=== PATIENT | female | born 1990 | race Caucasian/White ===

== ENCOUNTER 2016-11-15 21:10 | Inpatient (IN) | payer OTHER ==
--- NOTE | ~2016-11-15 | PN ---
Unit #: [id number] #: [id number] Patient: RICARDO MEANS [id number] [facility] [address] [place] [address] [id number] I MR#: [id number] NAME: RICARDO MEANS. ROOM: [facility] Age: 26 Sex: F Admission Date: 11/16/2016 : 1990 Attending Physician: Melody Williamson M.D. Admitting Physician: Melody Williamson M.D. Primary Care Physician: Primary Care Physician Katerina SCHAFFER NOTES DATE OF SERVICE: 11/19/2016 SUBJECTIVE Ms. Means is a 26-year-old white female who was seen today and chart was reviewed and case was discussed with the staff. She has been anxious, withdrawn, depressed, and reports not feeling good and was sitting on the bed, stating that she still has been having some negative thoughts. Meanwhile, she has been taking medications and tolerating them fairly well with no reported side effects. MENTAL STATUS EXAMINATION Young white female, who was casually dressed with fair personal hygiene, appears to be in no acute distress or discomfort. She was awake and alert on interaction with intact orientation. Her mood was anxious and depressed with a congruent affect. Her speech was slow and goal directed. She reports having suicidal ideation, but denies any homicidal ideations. Her insight and judgment remain slightly impaired. TREATMENT PLAN 1. We will continue her on her current treatment protocol. We will monitor her response to the medications and make further adjustments as needed. 2. We will continue to follow up. Dictated by... Teofilo Franco/ryan TD: 11/20/2016 01:37 JOB #: [id number] Unit #: [id number] #: [id number] Patient: RICARDO MEANS SILVE[facility]RE PROGRESS NOTES Page 1 of 1 X Melody Williamson MD PROGRESS NOTE
--- NOTE | ~2016-11-15 | PN ---
Unit #: [id number] #: [id number] Patient: RICARDO MEANS [id number] [facility] [address] [place] [address] [id number] I MR#: [id number] NAME: RICARDO MEANS. ROOM: [facility] Age: 26 Sex: F Admission Date: 11/16/2016 : 1990 Attending Physician: Melody Williamson M.D. Admitting Physician: Melody Williamson M.D. Primary Care Physician: Primary Care Physician Katerina RIVERS PROGRESS NOTES DATE November 21, 2016 DISCUSSION Ms. Means is a 26-year-old white female. who was seen today and chart was reviewed and the case was discussed with the staff. She has been anxious, withdrawn, and seclusive to herself, and was not feeling good last night, and reports auditory hallucinations as well as increasing anxiety, and also informed me she was having suicidal and homicidal ideations, and that last night she was having thoughts of hurting people outside of her room and mostly staff, even though they did not do anything to her and she stated that they were being nice to her but she was so agitated and frustrated that she was having thoughts of hurting them. The patient also reports increasing anxiety to an extent that it has been making her heart jump out of her chest and her chest muscles tighten up. The patient has been on Vistaril but does not appear to be showing a good response to the medication. MENTAL STATUS EXAMINATION Young white female, who was casually dressed with fair personal hygiene and appears to be in no acute distress or discomfort. She was awake and alert on interaction with intact orientation. Her mood was anxious with a congruent affect. She denies any suicidal or homicidal ideations. Her insight and judgment remain significantly impaired. TREATMENT PLAN 1. We will continue her on her current medications and switch her Vistaril to propranolol and will also increase her Seroquel to 300 mg at bedtime. 2. We will continue to followup. Dictated by... Teofilo Franco/betito TD: 11/22/2016 09:41 JOB #: [id number] Unit #: [id number] #: [id number] Patient: RICARDO MEANS PROGRESS NOTES Page 1 of 1 X Melody Williamson MD PROGRESS NOTE
--- NOTE | ~2016-11-15 | PN ---
Unit #: [id number] #: [id number] Patient: RICARDO MEANS [id number] [facility] [address] [place] [address] [id number] I MR#: [id number] NAME: RICARDO MEANS. ROOM: [facility] Age: 26 Sex: F Admission Date: 11/16/2016 : 1990 Attending Physician: Melody Williamson M.D. Admitting Physician: Melody Williamson M.D. Primary Care Physician: Primary Care Physician Katerina SCHAFFER NOTES DATE OF SERVICE: 11/18/2016 SUBJECTIVE Ms. Means is a 26-year-old white female who was seen today and chart was reviewed and case was discussed with the staff. She remains anxious, withdrawn, depressed, and rather seclusive to herself. Meanwhile, she has been cooperative with treatment recommendations and has been taking the medications and tolerating them fairly well with no reported side effects. MENTAL STATUS EXAMINATION Young white female who was casually dressed with fair personal hygiene, appears to be in no acute distress or discomfort. She was awake and alert on interaction with intact orientation. Her mood was anxious and depressed with a congruent affect. Her speech was slow and restricted in content. She reports having suicidal ideations, but denies any homicidal ideations. Her insight and judgment remain significantly impaired. TREATMENT PLAN 1. We will continue her on her current medications and treatment protocol. We will monitor her response to the medications and make further adjustments as needed. 2. We will continue to follow up. Dictated by... Teofilo Franco/ryan TD: 11/20/2016 01:24 JOB #: [id number] [facility] PROGRESS NOTES Page 1 of 1 X Melody Williamson MD PROGRESS NOTE
--- NOTE | ~2016-11-15 | PN ---
Unit #: [id number] #: [id number] Patient: RICARDO MEANS [id number] [facility] [address] [place] [address] [id number] I MR#: [id number] NAME: RICARDO MEANS. ROOM: [facility] Age: 26 Sex: F Admission Date: 11/16/2016 : 1990 Attending Physician: Melody Williamson M.D. Admitting Physician: Melody Williamson M.D. Primary Care Physician: Primary Care Physician Katerina SCHAFFER NOTES DATE OF SERVICE 11/24/2016 SUBJECTIVE Ms. Means is a 26-year-old white female who was seen today and chart was reviewed and case was discussed with the staff. The patient has been doing fairly well, but still has been complaining of persistent anxiety, however, she reports sleeping better last night. MENTAL STATUS EXAMINATION Young white female, who was casually dressed with fair personal hygiene, appears to be in no acute distress or discomfort. She was awake and alert on interaction with intact orientation. Her mood was anxious and depressed with a congruent affect. ideations. Her insight and judgment remain slightly impaired. TREATMENT PLAN 1. We will continue her on her current treatment protocol. We will monitor her response to the medications and make further adjustments as needed. 2. We will continue to follow up. Dictated by... Melody Williamson M.D. PIETER/ryan TD: 11/24/2016 12:10 JOB #: [id number] [facility] PROGRESS NOTES Page 1 of 1 X Melody Williamson MD PROGRESS NOTE
--- NOTE | ~2016-11-15 | PN ---
Unit #: [id number] #: [id number] Patient: RICARDO MEANS [id number] [facility] [address] [place] [address] [id number] I MR#: [id number] NAME: RICARDO MEANS. ROOM: [facility] Age: 26 Sex: F Admission Date: 11/16/2016 : 1990 Attending Physician: Melody Williamson M.D. Admitting Physician: Melody Williamson M.D. Primary Care Physician: Primary Care Physician Katerina RIVERS PROGRESS NOTES DATE November 17, 2016 DISCUSSION Ms. Means is a 26-year-old white female, who was seen today and chart was reviewed and the case was discussed with the staff. The patient has been anxious, withdrawn, and rather seclusive to herself but appears to be doing much better than yesterday and reports improvement with depressive symptoms. The patient has been taking the medications and tolerating them fairly well with no reported side effects. MENTAL STATUS EXAMINATION Young white female, who was casually dressed with fair personal hygiene and appears to be in no acute distress or discomfort. The patient was awake and alert on interaction with intact orientation. Her mood is anxious with a congruent affect. The patient denies any suicidal or homicidal ideations. Her insight and judgment remain slightly impaired. TREATMENT PLAN 1. We will continue her on her current medications and treatment protocol, and will monitor her response, and make further adjustments as needed. 2. We will continue to followup. Dictated by... Teofilo Franco/ebtito TD: 11/18/2016 10:47 JOB #: [id number] Unit #: [id number] #: [id number] Patient: RICARDO MEASNCHARLA PROGRESS NOTES Page 1 of 1 X Melody Williamson MD PROGRESS NOTE
--- NOTE | ~2016-11-15 | PN ---
Unit #: [id number] #: [id number] Patient: RICARDO MEANS [id number] [facility] [address] [place] [address] [id number] I MR#: [id number] NAME: RICARDO MEANS. ROOM: [facility] Age: 26 Sex: F Admission Date: 11/16/2016 : 1990 Attending Physician: Melody Williamson M.D. Admitting Physician: Melody Williamson M.D. Primary Care Physician: Primary Care Physician Katerina SCHAFFER NOTES DATE OF SERVICE: 11/25/2016 SUBJECTIVE Ms. Means is a 26-year-old white female, who was seen today and chart was reviewed and case was discussed with the staff. She has been doing somewhat better as she describes it. Meanwhile, she has been taking medications and tolerating them fairly well with no reported side effects. MENTAL STATUS EXAMINATION Young white female who was casually dressed with fair personal hygiene, appears to be in no acute distress or discomfort. She was awake and alert on interaction with intact orientation. Her mood was anxious with a congruent affect. She denies any suicidal or homicidal ideations. Her insight and judgment remain slightly impaired. TREATMENT PLAN 1. We will continue on her current medications and treatment protocol. We will monitor her response to medications and make further adjustments as needed. 2. We will continue to follow up. Dictated by... Melody Williamson M.D. PIETER/ryan TD: 11/26/2016 00:10 JOB #: [id number] [facility] PROGRESS NOTES Page 1 of 1 X Melody Williamson MD PROGRESS NOTE
--- NOTE | ~2016-11-15 | PN ---
Unit #: [id number] #: [id number] Patient: RICARDO MEANS [id number] [facility] [address] [place] [address] [id number] MR#: [id number] NAME: RICARDO MEANS. ROOM: [facility] Age: 26 Sex: F Admission Date: 11/16/2016 : 1990 Attending Physician: Melody Williamson M.D. Admitting Physician: Melody Williamson M.D. Primary Care Physician: Primary Care Physician Katerina SCHAFFER NOTES DATE 11/20/2016 DISCUSSION Ms. Means is a 26-year-old white female who was seen today and chart was reviewed and case was discussed with the staff. She has been anxious, withdrawn and she was cutting on her bed and was very withdrawn, seclusive and reports not feeling good and having a rough night and having negative thoughts and suicidal ideations as well as increasing anxiety and panic. She has been taking medications including Effexor and medications were increased just yesterday, she has not yet been able to show a therapeutic response. MENTAL STATUS EXAMINATION Young white female who was casually dressed with fair personal hygiene and appears to be in no acute distress or discomfort. She was awake and alert on interaction with intact orientation. Her mood was anxious with congruent affect. She denies any suicidal or . Dictated by... Melody Williamson M.D. IAA/ghassan TD: 11/21/2016 19:58 JOB #: [id number] [facility] PROGRESS NOTES Page 1 of 1 X Melody Williamson MD PROGRESS NOTE
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
--- NOTE | ~2016-11-15 | PN ---
Unit #: [id number] #: [id number] Patient: RICARDO MEANS [id number] [facility] [address] [place] [address] [id number] I MR#: [id number] NAME: RICARDO MEANS. ROOM: [facility] Age: 26 Sex: F Admission Date: 11/16/2016 : 1990 Attending Physician: Melody Williamson M.D. Admitting Physician: Melody Williamson M.D. Primary Care Physician: Primary Care Physician Katerina SCHAFFER NOTES DATE 11/22/2016 DISCUSSION Ms. Means is a 26-year-old white female who was seen today and chart was reviewed and case was discussed with the staff. She reports not feeling much better than yesterday, propranolol was added due to her significant anxiety and she received do not help and she was still having panic attacks and her vitals indicated extremely elevated heart rate as well blood pressure with diastolic above 100 and heart rates in the 130s and as such clonidine 0.1 mg was given and she stated that did much better on that particular medication in comparison to most of the other anxiolytics tried including Vistaril and propranolol. MENTAL STATUS EXAMINATION Young white female who was casually dressed with fair personal hygiene, appears to be in slight distress and discomfort. She was awake and alert on interaction with intact orientation. Her mood was anxious and depressed with congruent affect. She reports having suicidal ideation but denies any homicidal ideation. Her insight and judgement remains slightly impaired. TREATMENT PLAN 1. We will continue her on her current medications and treatment protocol. We will switch her propranolol to clonidine 0.1 mg twice a day. We will monitor her response and make further adjustments as needed. 2. We will continue to follow up. Dictated by... Teofilo Franco/guerita TD: 11/25/2016 02:43 JOB #: [id number] Unit #: [id number] #: [id number] Patient: RICARDO MEANS [facility] PROGRESS NOTES Page 1 of 1 X Melody Williamson A MD X PROGRESS NOTE
--- NOTE | ~2016-11-15 | DS ---
Unit #: [id number] #: [id number] Patient: RICARDO MEANS [id number] [facility] [address] [place] [address] [id number] I MR#: [id number] NAME: RICARDO MEANS ROOM: [facility] Age: 26 Sex: F Admission Date: 11/16/2016 : 1990 Discharge Date: 11/27/2016 Attending Physician: Melody Williamson M.D. Primary Care Physician: Primary Care Physician No DISCHARGE SUMMARY JOB NOTE: ADDENDUM ADDENDUM Ms. Means was scheduled to be discharged yesterday; however, she was feeling anxious and restless, and did not have proper discharge planning and as such, discharge planning was delayed for another 24 hours for proper arrangements to be made followed by which, it was decided that she will be discharged home on 11/27/2016 and will continue further outpatient psychiatric treatment. Dictated by... Teofilo Franco/ryan TD: 11/27/2016 11:17 JOB #: [id number] DISCHARGE SUMMARY Page 1 of 1 X Melody Williamson MD X DISCHARGE SUMMARY
--- NOTE | ~2016-11-15 | A ---
[facility] Nutrition Therapy DATE: 11/18/16 Patient: RICARDO REYES Physician: TOD Address: [address] Room/Bed: [address], Zip: [place] [id number] Admit Date: 11/16/16 Date of : [birth year] Height: 5 5 Weight: [id number] NUTRITIONAL ASSESSMENT: REASON: UNENTENTIONAL WEIGHT LOSS PATIENT ADMITTED FOR SI PMH: CEREBRAL PALSY, HX CVA, ANXIETY ATTACKS Anthropometrics: HT: 65", WT: 122#, BMI: 20.3 Labs: NO LABS AVAILABLE Meds: EFFEXOR, FLEXERIL, SEROQUEL, VISTARIL, DETOX PROTOCOL, MVI Assessment: PATIENT IS A 26 Y/O FEMALE ADMITTED FOR SI. PATIENT IS CURRENTLY UNEMPLOYED, LIVES WITH HER BOYFRIEND, SMOKES 1/2 PPD, AND HAD RECENT XANAX AND MARIJUANA USE. PATIENT HAS A HX OF INPATIENT/OUTPATIENT PSYCH TREATMENTS. SHE HAS STOPPED TAKING HER MEDICATIONS STATING NONE OF THEM HELPED. SHE IS ALSO HAS A HX OF BINGING AND PURGING WITH NO ACTIVE SYMPTOMS CURRENTLY. PATIENT IS ON A 72 HOUR HOLD AND SHE HAS BEEN HAVING C/O GENERALIZED PAIN AND MUSCLE CRAMPS. PATIENT'S L-ARM IS SLIGHTLY CONTRACTED AND SHE HAS L-SIDED WEAKNESS D/T CP. PER NEEDS ASSESSMENT PATIENT STATED A POOR APPETITE WITH NO RECENT WEIGHT CHANGE, AND THAT SHE HAD NOT BEEN SLEEPING. NURSING NOTED THAT PATIENT STATED A 13# WEIGHT LOSS IN LAST 7 DAYS. PATIENT'S BMI IS WITHIN A HEALTHY RANGE AND SHE 98% OF HER IBW. NURSING REPORTS GOOD PO INTAKES, BUT SHE WILL REFUSE A MEAL AT TIMES. PATIENT IS CURRENTLY ON A REGULAR DIET. THERE ARE NO SKIN OR GI ISSUES NOTED ATT. Dx: UNINTENTIONAL WEIGHT LOSS R/T CURRENT CONDITION AEB SELF-REPORTED WEIGHT LOSS AND DECREASED APPETITE, NUTRITIONAL RISK POINT Intervention: REGULAR DIET, MEDS PER MD, PSYCH, DETOX Monitoring, Evaluation and Goals: 1. ADEQUATE PO INTAKES >50% OF MEALS 2. PREVENT, CORRECT MICRO/MACRO NUTRIENT DEFICIENCIES MONITOR: WEIGHTS, LABS, PO/FLUID INTAKES Recommendations: 1. CONTINUE REGULAR DIET TOLERATED. OFFER SNACKS BETWEEN MEALS 2. ENCOURAGE ADEQUATE PO AND FLUID INTAKES 3. PATIENT HAS A HX OF PURGING. MAY NEED TO PUT PATIENT ON PURGING PROTOCOL. [facility] Nutrition Therapy DATE: 11/18/16 Patient: RICARDO Green AMY Physician: TOD Address: [address] Room/Bed: P262-1 [facility], Zip: [place] [address] Admit Date: 11/16/16 Date of : [birth year] Height: 5 5 Weight: [id number] 4. OBTAIN WEIGHTS ROUTINELY (EVERY 3-4 DAYS) RD TO F/U PER PROTOCOL AND PRN R/T PATIENT MILDLY COMPROMISED Respectfully, EDVIN QUINTANILLA, RD, LD [facility] cc: client file
--- NOTE | ~2016-11-15 | PN ---
Unit #: [id number] #: [id number] Patient: RICARDO MEANS [id number] [facility] [address] [place] [address] [id number] MR#: [id number] NAME: RICARDO MEANS. ROOM: [facility] Age: 26 Sex: F Admission Date: 11/16/2016 : 1990 Attending Physician: Melody Williamson M.D. Admitting Physician: Melody Williamson M.D. Primary Care Physician: Primary Care Physician Katerina SCHAFFER NOTES DATE November 23, 2016 DISCUSSION Ms. Means is a 26-year-old white female, who was seen today and chart was reviewed and the case was discussed with the staff. She remains anxious, withdrawn, and once again she was seclusive to herself and was not doing good and having acute anxiety despite adjusting the medications, and increased her Seroquel, she reports that she is still cannot sleep and she slept only three hours last night and that she was awake the rest of the night. She did request trazodone to be added to her Seroquel. MENTAL STATUS EXAMINATION Young white female, who was casually dressed with fair personal hygiene and appears to be in no acute distress or discomfort. The patient was awake and alert on interaction with intact orientation. Her mood is anxious and depressed with a congruent affect. She denies any suicidal or homicidal ideations, and also denies any auditory or visual hallucinations. Her insight and judgment remain significantly impaired. TREATMENT PLAN 1. We will adjust her medications and will add 50 mg of trazodone to her Seroquel and continue her on her current medications, and will monitor her response, and make further adjustments as needed. 2. We will continue to followup. Dictated by... Teofilo Franco/betito TD: 11/25/2016 09:31 JOB #: [id number] Unit #: [id number] #: [id number] Patient: RICARDO MEANS SILVESTRE PROGRESS NOTES Page 1 of 1 X Melody Williamson MD X PROGRESS NOTE
--- NOTE | ~2016-11-15 | HP ---
Unit #: [id number] #: [id number] Patient: RICARDO REYES [id number] [place] [address] [id number] MR#: [id number] NAME: RICARDO REYES. ROOM: [facility] Age: 26 Sex: F Admission Date: 11/16/2016 : 1990 Attending Physician: Melody Williamson M.D. Admitting Physician: Melody Williamson M.D. Primary Care Physician: Primary Care Physician No HISTORY AND PHYSICAL HISTORY OF PRESENT ILLNESS The patient is a 26-year-old female admitted to [address] [place] [address] on 11/16/2016 for suicidal ideation. PAST MEDICAL HISTORY Nicotine dependence. PAST SURGICAL HISTORY 1. Laparoscopic surgery times two 2. Left foot SOCIAL HISTORY She is unemployed. She lives with her boyfriend. She smokes 1/2 pack of cigarettes per day. FAMILY MEDICAL HISTORY Noncontributory. ALLERGIES Sulfa, Haldol, erythromycin, Prozac, Zoloft and latex. CURRENT MEDICATIONS The patient is not on any home medications. REVIEW OF SYSTEMS CONSTITUTIONAL: No fever or chills. HEENT: Denies any sore throat, ear pain or runny nose. CARDIOVASCULAR: Denies chest pain, irregular heart rhythm or palpitations. CHEST: Denies shortness of breath or cough. No hemoptysis. GASTROINTESTINAL: Denies nausea, vomiting, diarrhea or chronic constipation. ENDOCRINE: Denies history of increased thirst or urination. No recent significant weight loss or gain. GENITOURINARY: Denies dysuria, frequency, or hematuria. SKIN: Denies any rashes. HEMATOLOGIC: Denies history of increased bleeding or bruising. MUSCULOSKELETAL: Denies any hot, swollen joints. No generalized muscle pain. NEUROLOGIC: Denies problems with vision or speech. No frequent, severe headaches. No numbness, tingling or weakness in any extremities. Denies loss of bladder or bowel control. PHYSICAL EXAM Unit #: [id number] #: [id number] Patient: RICARDO REYES GENERAL: She is awake, alert and oriented in no acute distress. VITAL SIGNS: Temperature 97.0, heart rate 89, respiration 16, blood pressure 128/78. HEIGHT: 5'5". WEIGHT: 122 pounds. SKIN: Warm and dry without rash or lesion. HEENT: Normocephalic. TMs not viewed. Oral and nasal passages clear. Conjunctivae clear. PERRLA. EOMs intact. NECK: Supple without lymphadenopathy or thyromegaly. HEART: Regular rate and rhythm without murmur. LUNGS: Clear. ABDOMEN: Soft, nontender. : Not done. EXTREMITIES: No evidence of cyanosis, clubbing or edema. Moves all without focal deficit. NEUROLOGICAL: Grossly within normal limits. Cranial Nerves: II: Visual shaver are intact. III, IV AND : Extraocular movements are intact. Pupils are equal, round and reactive to light. V: Facial sensation is grossly normal. VII: Facial movements and expression are normal. VIII: Auditory acuity grossly intact. IX, X: Uvula is midline. Phonation is normal. XI: Patient shrugs shoulders and turns head normally. XII: Tongue protrudes in the midline. Sensory and Motor Function: Sensory and motor sensation is grossly normal. Motor: moves all extremities well. IMPRESSION 1. Psychiatric admission. 2. Nicotine dependence. RECOMMENDATIONS Psychiatric per psychiatrist. MEDICAL: No contraindication to participate in facility activities. MEDICAL PROGNOSIS Good. MEDICAL CONDITION Stable. Dictated by... Pb Lara/guerita TD: 11/17/2016 01:38 JOB #: [id number] Unit #: [id number] #: [id number] Patient: RICARDO REYES HISTORY AND PHYSICAL Page 1 of 1 X JOSE ANTONIO NAVA APRN HISTORY AND PHYSICAL
--- NOTE | ~2016-11-15 | DS ---
Unit #: [id number] #: [id number] [facility] [id number] [facility] [address] [place] [address] [id number] MR#: [id number] NAME: RICARDO MEANS. ROOM: [facility] Age: 26 Sex: F Admission Date: 11/16/2016 : 1990 Discharge Date: 11/27/2016 Attending Physician: Melody Williamson M.D. Primary Care Physician: Primary Care Physician No DISCHARGE SUMMARY IDENTIFYING DATA Ms. Means is a 26-year-old single white female, who is a resident of [place], [place], and was brought to the hospital accompanied by her family on a 72 hours hold. DISCHARGE DIAGNOSES Psychiatric: Major depressive disorder, recurrent, moderate, without psychotic features; generalized anxiety disorder. Medical: Gastroesophageal reflux disease. Stressors: Moderate psychosocial stressors. HISTORY OF PRESENT ILLNESS Please see initial psychiatric evaluation for details. PAST PSYCHIATRIC HISTORY Please see initial psychiatric evaluation for details. PAST MEDICAL HISTORY Please see initial psychiatric evaluation for details. HOSPITAL COURSE The patient was admitted to the adult psychiatric unit at [facility] and was oriented to the hospital environment. Routine p.r.n. medications were initiated, closely monitor, no detox, larger portions and Effexor was started. However, the patient had rather complicated course with persistent depression, anxiety, irritability, and we tried different medications and she was still having some significant anxiety and Seroquel was then added and then was gradually titrated up and along with trazodone, she was able to sleep much better. Meanwhile, Effexor was also increased and she was seen to be doing better and was denying any anxiety or suicidal ideations and was not seen to be a danger to self or anyone else and as such, it was decided that she will be discharged home and will continue treatment on an outpatient basis. DISCHARGE MEDICATIONS Effexor XR 150 mg a day for depression, Seroquel 300 mg at bedtime for depression, trazodone 50 mg at bedtime for anxiety. DISCHARGE CONDITION Stable. PROGNOSIS Fair. Unit #: [id number] #: [id number] Patient: RICARDO MEANS Dictated by... Melody Williamson M.D. IAA/modl TD: 11/26/2016 22:10 JOB #: [id number] DISCHARGE SUMMARY Page 1 of 1 X Melody Williamson MD DISCHARGE SUMMARY
== END 2016-11-27 09:30 | disposition home or self-care (01) | DRG 885 ==
LOC: P2L 11-16 00:56
DX: F33.1 Major depressive disorder, recurrent, moderate (principal); F41.1 Generalized anxiety disorder; F17.210 Nicotine dependence, cigarettes, uncomplicated; K21.9 Gastro-esophageal reflux disease without esophagitis
CPT/HCPCS: 86592